=== PATIENT | male | born 1970 | race Two or more races ===

== ENCOUNTER 2021-12-22 23:46 | Inpatient (IN) | payer OTHER ==
[~2021-12-22] VITALS: Ht 175.3 cm; Wt 91.6 kg
--- NOTE | 2021-12-23 00:06 | NUR ---
PT BIBSELF C/O ABD BLOATING, NAUSEA, AND PAIN X 1 WEEK. PT AAOX4 BREATHING EVENLY AND UNLABORED. PT ATTACHED TO MONITOR AND POX. PT CHANGED INTO GOWN AND GIVEN BLANKET AND CALL LIGHT WITHIN REACH.
[2021-12-23] MEDS ORDERED: KETOROLAC TROMETHAMINE 15 MG/ML VIAL ONE (00:13)
[2021-12-23] MEDS ORDERED: ONDANSETRON HCL/PF 4 MG/2 ML VIAL ONE (00:13)
--- NOTE | 2021-12-23 00:20 | NUR ---
BLOOD DRAWN AND SENT TO LAB
[2021-12-23] MEDS ORDERED: KETOROLAC TROMETHAMINE INJ 30 MG/ML VIAL IV ONE (00:30)
[2021-12-23] MEDS ORDERED: IV NS 0.9% 500 ML BAG IV ONE (00:30)
[2021-12-23] MEDS ORDERED: ONDANSETRON HCL/PF 4 MG/2 ML VIAL IVP ONE (00:30)
[2021-12-23 00:39] LABS: BASOPHILS % (AUTO) 0.4 % (0.0-2.0); EOSINOPHILS % (AUTO) 1.1 % (0.0-6.0); HEMATOCRIT 42 % (39-51); HEMOGLOBIN 14.1 g/dL (13.5-17.5); LYMPHOCYTES # (AUTO) 1.7 K/uL (0.8-4.8); LYMPHOCYTES % (AUTO) 15.1 % (20.0-44.0); MEAN CORPUSCULAR HGB CONC 34 g/dl (31.0-36.0); MEAN CORPUSCULAR VOLUME 85 fL (80-96); MONOCYTES % (AUTO) 8.9 % (2.0-12.0); NEUTROPHILS # (AUTO) 8.3 K/uL (1.8-8.9); NEUTROPHILS % (AUTO) 74.5 % (43.0-81.0); PLATELET COUNT (AUTO) 278 K/uL (150-450); RED BLOOD CELL COUNT(AUTO) 4.91 MIL/uL (4.5-6.0); WHITE BLOOD COUNT (AUTO) 11.2 K/uL (4.3-11.0)
[2021-12-23 00:46] LABS: BILIRUBIN,URINE NEGATIVE (NEGATIVE); COLOR,URINE YELLOW (YELLOW); LEUKOCYTE ESTERASE ,URINE NEGATIVE (NEGATIVE); NITRITE, URINE NEGATIVE (NEGATIVE); PROTEIN,URINE TRACE mg/dl (NEGATIVE); UGLUCOSE NEGATIVE (NEGATIVE); UROBILINOGEN,URINE 0.2 EU/dL (0.2)
[2021-12-23 01:06] LABS: CALCIUM, SERUM 8.5 mg/dL (8.5-10.1); CARBON DIOXIDE 27 mmol/L (21-32); CHLORIDE 100 mmol/L (98-107); CREATININE 0.8 mg/dL (0.6-1.3); GLUCOSE 136 mg/dL (74-106); SODIUM SERUM 138 mmol/L (136-145); UREA NITROGEN, BLOOD 17 mg/dL (7-18)
[2021-12-23 01:14] LABS: ALANINE AMINOTRANSFERASE 112 U/L (12-78); ALBUMIN 3.2 g/dL (3.4-5.0); ALKALINE PHOSPHATASE 123 U/L (46-116); ASPARTATE AMINOTRANSFERASE 47 U/L (15-37); BILIRUBIN,DIRECT 0.2 mg/dL (0.0-0.2); BILIRUBIN,TOTAL 0.7 mg/dL (0.2-1.0); LIPASE 146 U/L (73-393); TOTAL PROTEIN, SERUM 8.3 g/dL (6.4-8.2)
--- NOTE | 2021-12-23 02:12 | NUR ---
DR. ROSAS ON PHONE CALL WITH DR. MORGAN RADIOLOGIST
--- NOTE | 2021-12-23 02:15 | NUR ---
lab at bedside
[2021-12-23] MEDS ORDERED: PIPERACILLIN /TAZOBACTAM 3.375 G VIAL IV ONE (02:17)
--- NOTE | 2021-12-23 02:17 | NUR ---
COVID SWAB COLLECTED AND SENT TO LAB
[2021-12-23] MEDS ORDERED: PIPERACILLIN /TAZOBACTAM 3.375 G in IV D5W 50 ML IV ONE (02:30)
--- NOTE | 2021-12-23 02:45 | NUR ---
MOVE SHEET SUBMITTED
--- NOTE | 2021-12-23 02:50 | NUR ---
CLINICALS FAXED TO [facility]
--- NOTE | 2021-12-23 03:30 | NUR ---
FOLLOWED UP WITH DOROTHY CASTILLO FOR UPDATE. NO ANSWER.
--- NOTE | 2021-12-23 04:06 | NUR ---
DR ANTONIO VITAL.
--- NOTE | 2021-12-23 04:07 | NUR ---
ADONIS LEES ON PHONE CALL WITH DR FREEMAN
--- NOTE | 2021-12-23 04:09 | NUR ---
ORDERS REC'D FROM DR FREEMAN
--- NOTE | 2021-12-23 04:51 | NUR ---
DR ANTONIO VITAL
--- NOTE | 2021-12-23 05:42 | NUR ---
DR WU, CHIEF DOCTOR FROM [facility] SPEAKING WITH DR ROSAS
--- NOTE | 2021-12-23 06:45 | NUR ---
1L NS hanging at 100ml/hr, lac 20g, per Dr Melendrez verbal order. Infusion continued onto the floor.
[2021-12-23] MEDS ORDERED: METF-440 PO (07:05)
[2021-12-23 07:12] LABS: BACTERIA,URINE Rare /HPF (None Seen); HYALINE CASTS, URINE Rare /LPF (None Seen); RBC,URINE 0-2 /HPF (0-2); SQUAMOUS EPITHELIAL CELL,UR None Seen /HPF (None Seen); URINE AMORPHOUS URATE Few /HPF (None Seen); WBC,URINE NONE SEEN /HPF (0-3)
--- NOTE | 2021-12-23 07:13 | NUR ---
GAVE REPORT TO ADRIAN MORA FOR SUSAN
--- NOTE | 2021-12-23 08:18 | NUR ---
GOT BED 326-1
--- NOTE | 2021-12-23 08:27 | NUR ---
REPORT GIVEN TO ADRIAN LYN FOR SUSAN.
--- NOTE | 2021-12-23 09:00 | NUR ---
PATIENT ADMITTED FROM ER, ADMIT DX IS ACUTE APPENDICITIS REPORTED BY DARRYN RN. IN NO ACUTE DISTRESS OBSERVED. WILL CONTINUE TO MONITOR.
[2021-12-23] MEDS ORDERED: ACETAMINOPHEN 325 MG TABLET PO PRN (09:30)
[2021-12-23] MEDS ORDERED: ONDANSETRON HCL/PF 4 MG/2 ML VIAL IVP PRN (09:30)
[2021-12-23] MEDS ORDERED: HYDROMORPHONE 1 MG/1 ML DISP.SYRIN IV PRN (09:30)
[2021-12-23] MEDS ORDERED: IV NS 0.9% 1,000 ML IV PRN (09:30)
[2021-12-23] MEDS: PIPERACILLIN /TAZOBACTAM 3.375 G in IV D5W 100 ML IV SCH ×3 (11:48→21:12)
[2021-12-23] MEDS: BLOOD SUGAR DIAGNOSTIC 1 EACH STRIP IN SCH ×2 (11:56→17:12)
[2021-12-23 12:00] VITALS: BP 130/84
[2021-12-23] MEDS ORDERED: PIPE3.379 IV (17:03)
--- NOTE | 2021-12-23 18:50 | NUR ---
RN CLOSE NOTE PATIENT IN BED. IN NO ACUTE DISTRESS OBSERVED. RESPIRATION EVEN AND UNLABORED ON ROOM AIR. SKIN IS WARM TO TOUCH KEEP CLEAN//DRY, INTACT IV SITE ON LEFT AC 20 G RUNNING NS AT 100ML. SPOKE WITH [facility] PHONE NUMBER: [phone] REGARDING PATIENT TRANSFER TO IN [facility] FOR IR TO DRAIN THE MAURA APPENDIX ABSCESS. KEPT ELEVATED HOB FOR ASPIRATION PRECAUTION AND ENSURE AIR WAY, ALSO LOWEST POSITION OF THE BED FOR SAFETY. CALL LIGHT WITHIN REACH, WILL ENDORSE TO CARPENTER SUPERVISOR [employer].
[2021-12-23 20:00] VITALS: BP 118/72
--- NOTE | 2021-12-23 20:10 | NUR ---
MS RN OPENING NOTES: RECEIVED PATIENT AWAKE IN BED, BED IN LOW POSITION, CALL LIGHTS WITHIN REACH, NO COMPLAIN OF PAIN AND DISCOMFORT AT THIS TIME, ON ROOM AIR SATURATING WELL, A/OX4 QABLE TO MAKE NEEDS KNOWN, WITH IV LINE AT LAC#20 WITH ONGOING NSS@100ML PER HOUR INFUSING WELL, PATIENT KEPT CLEAN AND DRY ALL NEEDS MET WILL CONTINUE TO MONITOR.
--- NOTE | 2021-12-24 00:11 | NUR ---
rn notes; BS-139 PATIENT WAS ON CLEAR LIQUID, NO INSULIN SLIDING SCALE SCHEDULE
[2021-12-24] MEDS: PIPERACILLIN /TAZOBACTAM 3.375 G in IV D5W 100 ML IV SCH (04:49)
[2021-12-24] MEDS: BLOOD SUGAR DIAGNOSTIC 1 EACH STRIP IN SCH ×2 (06:00)
--- NOTE | 2021-12-24 06:07 | NUR ---
RN NOTES: BS-118 NO INSULIN GIVEN
--- NOTE | 2021-12-24 06:28 | NUR ---
RN CLOSING NOTES: PATIENT SLEEP IN BED COMFORTABLY, BED IN LOW POSITION CALL LIGHTS WITHIN REACH, NO COMPLAIN OF PAIN AND DISCOMFORT AT THIS TIME ON ROOM AIR SATURATING WELL, A/O X4 ABLE TO MAKE NEEDS KNOWN WITH IV LINE AT LAC#20 WITH ONGOING NSS@ 100ML/HR INFUSING WELL, PATIENT KEPT CLEAN AND DRY ALL NEEDS MET ENDORSE TO INCOMING SHIFT. Addendum: 12/24/21 at 0755 by JOSIAH NICKERSON RN RN NOTES: RECEIVED CALL FROM DOROTHY LEÓN FOR PATIENT LATERAL TRANSFER TO [facility], PAPERS WERE PREPARED AND SIGNED ENDORSE TO INCOMING CN, CALLED [facility] SPOKE TO SAURABH AND ENDORSE PATIENT, PATIENT REMAINS STABLE, V/S ARE WITHIN NORMAL REACH, EXPECTED ASSOCIATE DIRECTOR OF BIOSTATISTICS TIME [id number], ENDORSE TO AM NURSE
[2021-12-24 06:38] LABS: BASOPHILS % (AUTO) 0.3 % (0.0-2.0); EOSINOPHILS % (AUTO) 1.1 % (0.0-6.0); HEMATOCRIT 41 % (39-51); LYMPHOCYTES # (AUTO) 1.3 K/uL (0.8-4.8); LYMPHOCYTES % (AUTO) 13.8 % (20.0-44.0); MEAN CORPUSCULAR HGB CONC 34 g/dl (31.0-36.0); MEAN CORPUSCULAR VOLUME 86 fL (80-96); MONOCYTES # (AUTO) 0.8 K/uL (0.1-1.30); MONOCYTES % (AUTO) 8.1 % (2.0-12.0); NEUTROPHILS # (AUTO) 7.4 K/uL (1.8-8.9); NEUTROPHILS % (AUTO) 76.7 % (43.0-81.0); PLATELET COUNT (AUTO) 282 K/uL (150-450); RED BLOOD CELL COUNT(AUTO) 4.81 MIL/uL (4.5-6.0); WHITE BLOOD COUNT (AUTO) 9.6 K/uL (4.3-11.0)
[2021-12-24 07:00] LABS: CALCIUM, SERUM 8.2 mg/dL (8.5-10.1); CREATININE 0.8 mg/dL (0.6-1.3); MAGNESIUM 2.2 mg/dL (1.8-2.4); POTASSIUM 4.7 mmol/L (3.5-5.1)
--- NOTE | 2021-12-24 08:00 | NUR ---
PATIENT RECEIVED IN BED, AO X 4, ABLE TO RESPONDS ALL STIMULI. PATIENT TRANSFER TO [facility], 2 BOX STORAGE WORKER ARRIVED TO HERBARIUM CURATOR PATIENT AND GIVEN REPORT. PATIENT IN NO ACUTE DISTRESS OBSERVED, IN STABLE CONDITION, DENIES ABD PAIN.
== END 2021-12-24 08:10 | disposition short-term general hospital (02) | DRG 373 ==
LOC: ER 23:56 → TRANSITION 12-23 06:06 → MED 12-23 08:21
PROVIDERS: ADMIT Internal Medicine; ATTEND Internal Medicine
DX: K35.33 Acute appendicitis with perforation, localized peritonitis, and gangrene, with abscess (principal); Z20.822 Contact with and (suspected) exposure to COVID-19; E66.9 Obesity, unspecified; E11.9 Type 2 diabetes mellitus without complications; Z68.30 Body mass index [BMI] 30.0-30.9, adult; Z79.84 Long term (current) use of oral hypoglycemic drugs; Z83.3 Family history of diabetes mellitus
CPT/HCPCS: 36415; 71045-TC; 80048-TC; 80076-TC; 81001; 82962-TC; 83690-TC; 83735-TC; 84484-TC; 85025-TC; 85730-TC; 87081-TC; C9803; G0378; J1885; J2405; J2543; J7030; J7040; J7060